=== PATIENT | female | born 1995 | race Caucasian/White ===

== ENCOUNTER → 2018-06-16 | Outpatient (CLI) | payer OTHER ==
[~2018-06-16] MED LIST: ATENOLOL25 MG PO; FLEXERIL5 MG PO; MOTRIN400 MG PO; MOTRIN800 MG PO; NKHM; NKHM PO; PRENTAL 1 PLUS1 TAB PO; VICODIN 500 MG-1 TAB PO; ZOFRAN ODT4 MG SL; Zofran4 MG PO
== END | disposition home or self-care (01) ==
LOC: US 12:56
DX: E04.1 Nontoxic single thyroid nodule (principal)

== ENCOUNTER → 2020-06-28 | Outpatient (CLI) | payer OTHER | END | disposition home or self-care (01) | LOC: COVID19 00:29 | PROVIDERS: ATTEND Nurse Practitioner Primary Care | DX: O98.512 Other viral diseases complicating pregnancy, second trimester (principal); U07.1 COVID-19; Z3A.19 19 weeks gestation of pregnancy ==

== ENCOUNTER → 2021-02-27 | Outpatient (CLI) | payer OTHER | END | disposition home or self-care (01) | LOC: US 07:30 | PROVIDERS: ATTEND Nurse Practitioner Primary Care | DX: E04.1 Nontoxic single thyroid nodule (principal) ==